=== PATIENT | male | born 1975 | race Caucasian/White ===

== ENCOUNTER 2017-06-16 10:47 | Emergency (ER) | payer BC ==
[~2017-06-16] VITALS: Ht 175.3 cm; Wt 130.2 kg
[2017-06-16] MEDS ORDERED: ZITHROMAX250 MG PO (11:03)
[2017-06-16] MEDS ORDERED: VENTOLIN HFA18 GM INH (11:04)
[2017-06-16] MEDS ORDERED: ATORVASTATIN CA10 MG PO (11:05)
[2017-06-16] MEDS ORDERED: CLEOCIN HCL300 MG PO (11:56)
--- NOTE | 2017-06-16 18:33 | EKG ---
[facility] [address] [facility] [place] [address] Signed Sinus tachycardia Otherwise normal ECG No previous ECGs available Confirmed by DAMIEN SILVA MD ([id number] on 06/16/2017 6:33:16 PM Electronically Signed By: DAMIEN SILVA MD 06/16/17 1833 PATIENT NAME: HAZEL LAO Electrocardiogram DATE OF : 79 PHYSICIAN: DAMIEN SILVA MD REPORT #: [id number] REPORT IS CONFIDENTIAL AND NOT TO BE RELEASED WITHOUT AUTHORIZATION
== END 2017-06-16 13:44 | disposition home or self-care (01) ==
LOC: ED 10:47
DX: L03.116 Cellulitis of left lower limb (principal); Z79.899 Other long term (current) drug therapy
CPT/HCPCS: 71045; 80053; 83605; 85025; 85610; 87040; 93005; 93010; 93971; 96374; 96375; 99284; J2405

== ENCOUNTER 2019-11-13 13:32 | Emergency (ER) | payer OTHER, BC ==
[~2019-11-13] VITALS: Ht 175.3 cm; Wt 130.2 kg
[~2019-11-13 13:32] MED LIST: ATORVASTATIN CA10 MG PO; CLEOCIN HCL300 MG PO; VENTOLIN HFA18 GM INH; ZITHROMAX250 MG PO
== END 2019-11-13 15:06 | disposition home or self-care (01) ==
LOC: ED 13:32
DX: M20.012 Mallet finger of left finger(s) (principal)
CPT/HCPCS: 73140; 99283-25

== ENCOUNTER 2021-03-31 02:55 | Emergency (ER) | payer BC ==
[~2021-03-31] VITALS: Ht 175.3 cm; Wt 127.0 kg
[2021-03-31] MEDS ORDERED: HYDROCODON-ACE1 EA10 PO (05:47)
[2021-03-31] MEDS ORDERED: ZOFRAN4 MG PO (05:47)
== END 2021-03-31 06:16 | disposition home or self-care (01) ==
LOC: ED 02:55
DX: N13.2 Hydronephrosis with renal and ureteral calculous obstruction (principal)
CPT/HCPCS: 74176; 81001; 85025; 96374; 96375; 99284-25; A9270; J1170; J1885; J2405